=== PATIENT | male | born 1970 | race Two or more races ===

== ENCOUNTER 2022-08-12 09:16 | Emergency (ER) | payer OTHER ==
[2022-08-12 09:25] VITALS: BP 112/67; PULSE 127; RESP 20; TEMP 99.4; BMI 30.7
[2022-08-12] MEDS ORDERED: CYCLOBENZAPRINE HCL 10 MG TABLET (FP) PO ONE (10:05)
[2022-08-12] MEDS ORDERED: ACETAMINOPHEN 500 MG TABLET (FP) PO ONE (10:05)
[2022-08-12] MEDS ORDERED: IBUPROFEN 600 MG TABLET (FP) PO ONE ×3 (10:05→10:11)
[2022-08-12] MEDS ORDERED: CYCLOBENZAPRINE HCL 10 MG TABLET (FP) ONE (10:10)
[2022-08-12] MEDS ORDERED: ACETAMINOPHEN 500 MG TABLET (FP) ONE (10:11)
[2022-08-12 11:10] LABS: EPI CELLS 16 /uL (0-25.1); HYALINE CASTS 7 /uL (0-3.1); PH,URINE 6.5 (5.0-8.0); URINE APPEARANCE CLEAR; URINE BACTERIA 11 /uL (0-1359); URINE BILIRUBIN NEGATIVE (NEGATIVE); URINE COLOR DK YELLOW; URINE GLUCOSE (UA) NEGATIVE (NEGATIVE); URINE KETONE TRACE (NEGATIVE); URINE LEUK ESTERASE NEGATIVE (NEGATIVE); URINE NITRITE NEGATIVE (NEGATIVE); URINE PROTEIN 1+ (NEGATIVE); URINE RBC 5 /uL (0-23.9); URINE UROBILINOGEN 0.2 mg/dL (0.2-1.0); URINE WBC 29 /uL (0-25.8)
[2022-08-12 11:47] LABS: URINE CRYSTALS NEGATIVE /hpf
== END 2022-08-12 11:35 | disposition home or self-care (01) ==
LOC: JERFT 09:16
DX: J06.9 Acute upper respiratory infection, unspecified (principal); M54.50 Low back pain, unspecified; R51.9 Headache, unspecified; R05.1 Acute cough; Z20.822 Contact with and (suspected) exposure to COVID-19
CPT/HCPCS: 0241U-QW; 72100-TC-FY; 81003; 87086; 99284-25